=== PATIENT | male | born 1980 | race Caucasian/White ===

== ENCOUNTER 2017-01-09 23:27 | Emergency (ER) | payer MEDICAID, OTHER ==
[2017-01-10] MEDS ORDERED: CLINDAMYCIN HCL 150 MG CAPSULE PO ONE (01:35)
[2017-01-10] MEDS ORDERED: BUPIVACAINE HCL 0.75% INJ/PF (7.5 MG/1 ML) 10 ML SDV INJ ONE (01:35)
[2017-01-10] MEDS ORDERED: POLYMYXIN B SULFATE/TMP OPH SOLN 10 ML OU ONE (01:35)
[2017-01-10] MEDS ORDERED: LIDOCAINE 1% INJ (10 MG/ML) 10 ML MDV INJ ONE (01:36)
--- NOTE | 2017-01-10 01:38 | ER Document Report ---
ED General - General Chief Complaint: Facial Swelling Stated Complaint: FACIAL SWELLING Time Seen by Provider: 01/10/17 01:28 Notes: Patient is a 37-year-old male that comes emergency department for chief complaint of swelling of the right jaw that began earlier today. He states he did feel soreness in his right lower tooth yesterday and today. He also states that he has very irritated eyes with occasional discharge, he was exposed to his daughter who had the same symptoms and she was treated with resolution. He does have a dentist. He took Tylenol and aspirin before arrival. PMH of non- Hodgkin's lymphoma, in remission, not on chemotherapy or radiation. TRAVEL OUTSIDE OF THE [place] IN LAST 30 DAYS: No - Related Data Allergies/Adverse Reactions: No Known Allergies Allergy (Verified 01/09/17 23:57) Past Medical History - General Information source: Patient - Social History Smoking Status: Never Smoker Drug Abuse: None Lives with: Family Family History: Hypertension - Past Medical History Cardiac Medical History: Reports: Hx Hypertension - on meds Denies: Hx Coronary Artery Disease, Hx Heart Attack Pulmonary Medical History: Denies: Hx Asthma, Hx Bronchitis, Hx COPD, Hx Pneumonia, Hx Tuberculosis Neurological Medical History: Denies: Hx Cerebrovascular Accident, Hx Seizures Renal/ Medical History: Denies: Hx Peritoneal Dialysis Musculoskeltal Medical History: Denies Hx Arthritis - Immunizations Hx Diphtheria, Pertussis, Tetanus Vaccination: Yes Review of Systems - Review of Systems Constitutional: No symptoms reported EENT: See HPI Cardiovascular: No symptoms reported Respiratory: No symptoms reported Gastrointestinal: No symptoms reported Genitourinary: No symptoms reported Male Genitourinary: No symptoms reported Musculoskeletal: No symptoms reported Skin: No symptoms reported Hematologic/Lymphatic: No symptoms reported Neurological/Psychological: No symptoms reported Physical Exam - Vital signs Vitals: Temp Pulse Resp BP Pulse Ox 98.3 F 91 16 134/88 H 95 01/09/17 23:54 01/09/17 23:54 01/09/17 23:54 01/09/17 23:54 01/09/17 23:54 Interpretation: Normal - General General appearance: Appears well, Alert In distress: None - Patient appears mildly ill and mildly uncomfortable but does not appear to be in distress - HEENT Head: Normocephalic, Atraumatic, Other - Small amount of swelling to the right lower jaw Eyes: Normal Conjunctiva: Injected, Purulent discharge - Small amount of purulent discharge noted at both medial canthus Extraocular movements intact: Yes Eyelashes: Normal Pupils: PERRL Corrective lenses worn: Yes - Glasses Anterior chamber: Normal. No: Hyphema Ears: Normal External canal: Normal Tympanic membrane: Normal Sinus: Normal Nasal: Normal Mouth/Lips: Normal Mucous membranes: Normal Teeth diagram: 1 - Erythematous gumline with dental decay Pharynx: Normal Neck: Normal - Respiratory Respiratory status: No respiratory distress Chest status: Nontender Breath sounds: Normal Chest palpation: Normal - Cardiovascular Rhythm: Regular Heart sounds: Normal auscultation Murmur: No - Abdominal Inspection: Normal Distension: No distension Bowel sounds: Normal Tenderness: Nontender Organomegaly: No organomegaly - Back Back: Normal, Nontender - Extremities General upper extremity: Normal inspection, Nontender, Normal color, Normal ROM , Normal temperature General lower extremity: Normal inspection, Nontender, Normal color, Normal ROM , Normal temperature, Normal weight bearing. No: Kelsey's sign - Neurological Neuro grossly intact: Yes Cognition: Normal Orientation: AAOx4 García Coma Scale Eye Opening: Spontaneous García Coma Scale Verbal: Oriented [place] Coma Scale Motor: Obeys Commands [place] Coma Scale Total: 15 Speech: Normal Motor strength normal: LUE, RUE, LLE, RLE Sensory: Normal - Psychological Associated symptoms: Normal affect, Normal mood - Skin Skin Temperature: Warm Skin Moisture: Dry Skin Color: Normal Course - Re-evaluation Re-evalutation: Patient with obvious conjunctivitis, he reports he got this from his daughter, no orbital swelling or evidence of orbital cellulitis. Patient with slight facial swelling secondary to a dental infection, questionable abscess. Discussed with patient. Dental block was performed, excellent results, after this was performed the erythematous gumline which was a questionable abscess was examined by sticking a small needle in it and aspirating, no purulent material was able to be aspirated, does not appear to be a drainable abscess. Patient treated with clindamycin, referred to the dentist, discussed return precautions. Patient states understanding and agreement. - Vital Signs Vital signs: Temp Pulse Resp BP Pulse Ox 98.2 F 90 17 143/84 H 96 01/10/17 03:09 01/10/17 03:09 01/10/17 03:01/10/17 03:01/10/17 03:09 Procedures - Additional Procedures Right inferior alveolar nerve dental block Notes: 1 cc of 1% lidocaine and 2 cc of 0.75% bupivacaine injected after aspirating into the ridge at the inferior alveolar nerve block location, excellent results with good anesthesia, there was a small amount of bleeding afterwards but this resolved after a short duration of pressure with 2 x 2's. On recheck patient has no persisting symptoms other than good anesthesia. Discharge - Discharge Clinical Impression: Facial swelling, Dental infection Conjunctivitis Qualifiers: Conjunctivitis type: unspecified Laterality: bilateral Qualified Code(s): H10.9 - Unspecified conjunctivitis Condition: Stable Disposition: HOME, SELF-CARE Additional Instructions: Your examination is consistent with a dental infection causing swelling of the face, also shows conjunctivitis (pinkeye). Take both the antibiotic and the antibiotic drops as directed. Follow-up with a dentist for additional management to prevent this from occurring again. Return to the emergency department for any concerning or worsening symptoms including increased swelling of the face, loss of vision, fever, or any other concerning symptoms. Prescriptions: Clindamycin HCl [Cleocin 150 mg Capsule] 150 mg PO Q6 #56 capsule Polymyxin B Sulfate/Tmp [Polytrim Oph Soln 10 ml] 1 dose OP ASDIR PRN #1 bottle PRN Reason: Forms: Return to Work
[2017-01-10] MEDS ORDERED: LIDOCAINE 1% INJ-PF (10 MG/ML) 30 ML SDV ONE (02:04)
[2017-01-10] MEDS ORDERED: POLYMYXIN B SULFATE/TMP OPH SOLN 10 ML ONE (02:17)
[2017-01-10] MEDS ORDERED: HYDROCODONE/ACETAMINOPHEN 5-325 MG 6 TAB/DSPK PO PRN (02:42)
[2017-01-10 03:11] VITALS: BP 143/84
== END 2017-01-10 03:11 | disposition home or self-care (01) ==
LOC: ER 23:27
PROC: 3E0T3BZ Introduction of Anesthetic Agent into Peripheral Nerves and Plexi, Percutaneous Approach (ICD-10-PCS; principal; 2017-01-09)
DX: K04.7 Periapical abscess without sinus (principal); R22.0 Localized swelling, mass and lump, head; I10 Essential (primary) hypertension
CPT/HCPCS: 99283; 64400; J3490 ×2

== ENCOUNTER → 2017-10-09 | Outpatient (CLI) | payer OTHER ==
--- NOTE | 2017-10-10 11:00 | RADIOLOGY REPORT (SQ) ---
EXAM DESCRIPTION: PET CT SKULL/THIGH COMPLETED DATE/TIME: 10/09/2017 9:46 pm REASON FOR STUDY: NON HODGKIN LYMPHOMA COMPARISON: 05/10/2014. RADIONUCLIDE AND DOSE: 10.0 mCi F18 FDG The route of agent administration: Intravenous FASTING BLOOD SUGAR: 88 mg/dl CONTRAST TYPE AND DOSE: No CT contrast given. TECHNIQUE: Blood glucose level was verified. Above dose of FDG was injected intravenously. 2-D seg mented attenuation correction images were obtained from the base of the skull to the midthighs. Nonc ontrast CT images were obtained for attenuation correction and fusion with emission images. CT image s were performed without oral or intravenous contrast and are not sensitive for parenchymal lesions. A series of overlapping emission PET images were obtained. [facility] by the radiologist. Images stored on PACS. LIMITATIONS: None. FINDINGS: HEAD AND NECK: No areas of abnormal metabolic activity in the soft tissues of the head and neck. CHEST: No areas of abnormal metabolic activity in the chest. ABDOMEN AND PELVIS: No areas of abnormal metabolic activity in the abdomen or pelvis. Expected physi ologic activity is present in the genitourinary system and bowel. PROXIMAL LOWER EXTREMITIES: No areas of abnormal metabolic activity in the soft tissues of the lower extremities. BONES: No abnormal metabolic activity in the visualized skeleton. ADDITIONAL CT FINDINGS: No additional significant findings on the noncontrast CT images. OTHER: Background liver activity mean SUV 2.21. Background blood pool activity mean SUV 1.45. IMPRESSION: NEGATIVE PET-CT SCAN. NO ABNORMAL ACTIVITY DETECTED. NO ADENOPATHY OR SOFT TISSUE MASS ES. NO SIGNIFICANT FINDINGS ON NONCONTRAST CT. TECHNICAL DOCUMENTATION: JOB ID: [id number] [employer]- All Rights Reserved Reading location - IP/workstation name: [email or web address]
== END ==
LOC: RAD 18:56
PROVIDERS: ATTEND Nurse Practitioner Family
DX: Z85.72 Personal history of non-Hodgkin lymphomas (principal)
CPT/HCPCS: 78815; A9552

== ENCOUNTER 2020-02-24 00:46 | Emergency (ER) | payer OTHER ==
[2020-02-24] MEDS ORDERED: KETOROLAC TROMETHAMINE 60 MG/2 ML SDV IM ONE (01:22)
[2020-02-24] MEDS ORDERED: PROMETHAZINE HCL INJ 25 MG/1 ML VIAL IM ONE (01:22)
--- NOTE | 2020-02-24 01:26 | ER Document Report ---
ED Medical Screen (RME) - General Chief Complaint: Flank Pain Stated Complaint: FLANK PAIN Time Seen by Provider: 02/24/20 01:15 Primary Care Provider: NIURKA HER APRN [Primary Care Provider] - Follow up as needed Mode of Arrival: Ambulatory Information source: Patient Notes: 40-year-old male coming in today with sudden onset of right flank pain radiating to the abdomen and groin starting this evening. Her symptoms last week. Some nausea produced. No fevers or chills. No urinary symptoms. Patient reports no previous problems with kidney stones. General exam nontoxic appearing but uncomfortable Abdomen nontender, no CVA tenderness Musculoskeletal no spinal tenderness I have greeted and performed a rapid initial assessment of this patient. A comprehensive ED assessment and evaluation of the patient, analysis of test results and completion of the medical decision making process will be conducted by additional ED providers. TRAVEL OUTSIDE OF THE [place] IN LAST 30 DAYS: No - Related Data Allergies/Adverse Reactions: No Known Allergies Allergy (Verified 01/09/17 23:57) Past Medical History - Past Medical History Cardiac Medical History: Reports: Hx Hypertension - on meds Denies: Hx Coronary Artery Disease, Hx Heart Attack Pulmonary Medical History: Denies: Hx Asthma, Hx Bronchitis, Hx COPD, Hx Pneumonia, Hx Tuberculosis Neurological Medical History: Denies: Hx Cerebrovascular Accident, Hx Seizures Renal/ Medical History: Denies: Hx Peritoneal Dialysis Musculoskeltal Medical History: Denies Hx Arthritis - Immunizations Hx Diphtheria, Pertussis, Tetanus Vaccination: Yes Physical Exam - Vital signs Vitals: Temp Pulse Resp BP Pulse Ox 97.5 F 77 19 174/105 H 100 02/24/20 00:52 02/24/20 00:52 02/24/20 00:52 02/24/20 00:52 02/24/20 00:52 Course - Vital Signs Vital signs: Temp Pulse Resp BP Pulse Ox 97.5 F 77 19 174/105 H 100 02/24/20 00:52 02/24/20 00:52 02/24/20 00:52 02/24/20 00:52 02/24/20 00:52 Doctor's Discharge - Discharge Referrals: NIURKA HER APRN [Primary Care Provider] - Follow up as needed
[2020-02-24] MEDS ORDERED: NORMAL SALINE 1000 ML 1,000 ML IV ONE (01:32)
[2020-02-24] MEDS ORDERED: ONDANSETRON HCL INJ/PF 4 MG/2 ML SDV IV ONE (01:32)
[2020-02-24] MEDS ORDERED: KETOROLAC TROMETHAMINE INJ/PF 30 MG/1 ML SDV IV ONE (01:32)
[2020-02-24 02:09] LABS: ABSOLUTE BASOPHILS # (AUTO) 0.1 10^3/uL (0.0-0.2); ABSOLUTE EOSINOPHILS # (AUTO) 0.3 10^3/uL (0.0-0.6); ABSOLUTE LYMPHOCYTES (AUTO) 1.3 10^3/uL (0.5-4.7); ABSOLUTE MONOCYTES (AUTO) 0.7 10^3/uL (0.1-1.4); ABSOLUTE NEUT (AUTO) 6.3 10^3/uL (1.7-8.2); BASOPHILS % (AUTO) 0.7 % (0-2); EOSINOPHILS % (AUTO) 3.1 % (0-6); HEMATOCRIT 43.7 % (37.9-51.0); HEMOGLOBIN 15.3 g/dL (13.5-17.0); LYMPHOCYTES % (AUTO) 15.4 % (13-45); MEAN CORPUSCULAR HEMOGLOBIN 35.2 pg (27.0-33.4); MEAN CORPUSCULAR HGB CONC 35.1 g/dL (32.0-36.0); MEAN CORPUSCULAR VOLUME 100 fl (80-97); MONOCYTES % (AUTO) 8.4 % (3-13); PLATELET COUNT 227 10^3/uL (150-450); RED BLOOD COUNT 4.36 10^6/uL (4.35-5.55); RED CELL DISTRIBUTION WIDTH 13.6 % (11.5-14.0); SEGMENTED NEUTROPHILS % (AUTO) 72.4 % (42-78); TOTAL CELLS COUNTED % (AUTO) 100 %; WHITE BLOOD COUNT 8.7 10^3/uL (4.0-10.5)
--- NOTE | 2020-02-24 02:15 | ER Document Report ---
ED General - General Chief Complaint: Flank Pain Stated Complaint: FLANK PAIN Time Seen by Provider: 02/24/20 01:15 Primary Care Provider: SAILAJA LOZADA MD [NO LOCAL MD] - Follow up in 3-5 days (for urology follow up for kidney stone ) NIURKA HER APRN [NO LOCAL MD] - Follow up in 3-5 days Mode of Arrival: Ambulatory TRAVEL OUTSIDE OF THE [place] IN LAST 30 DAYS: No - HPI Notes: 40-year-old male to the emergency department with complaints of sudden onset right flank pain that began tonight with associated nausea and vomiting. Patient states that he had a little bit of a cold for the past couple of days. He admits to some nasal congestion and a mild cough. States he felt like he was may be getting a little bit better in the past 2 days but then tonight after going to bed he awoke with the pain. Never had a kidney stone before. Denies a ny fevers or temperature greater than 100.4. Denies any COVID-19 contacts. He is a non-Hodgkin's lymphoma patient he was in remission. 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 He denies any chest pain, shortness of breath, diarrhea. The patient was evaluated during the global COVID 19 pandemic, and that diagnosis was suspected/considered upon their initial presentation. Their evaluation, treatment, and testing was consistent with current guidelines for patients who present with complaints or symptoms that may be related to COVID-19. - Related Data Allergies/Adverse Reactions: No Known Allergies Allergy (Verified 01/09/17 23:57) Home Medications: [facility] Past Medical History - General Information source: Patient - Social History Smoking Status: Current Every Day Smoker Family History: Hypertension - Past Medical History Cardiac Medical History: Reports: Hx Hypertension - on meds Denies: Hx Coronary Artery Disease, Hx Heart Attack Pulmonary Medical History: Denies: Hx Asthma, Hx Bronchitis, Hx COPD, Hx Pneumonia, Hx Tuberculosis Neurological Medical History: Denies: Hx Cerebrovascular Accident, Hx Seizures Renal/ Medical History: Denies: Hx Peritoneal Dialysis Musculoskeletal Medical History: Denies Hx Arthritis - Immunizations Hx Diphtheria, Pertussis, Tetanus Vaccination: Yes Review of Systems - Review of Systems Constitutional: denies: Chills, Fever EENT: Nose congestion Cardiovascular: denies: Chest pain, Dizziness, Lightheaded Respiratory: Cough. denies: Short of breath Gastrointestinal: Abdominal pain, Nausea, Vomiting. denies: Diarrhea Genitourinary: Flank pain. denies: Frequency, Hematuria Musculoskeletal: denies: Back pain Skin: No symptoms reported Hematologic/Lymphatic: No symptoms reported Neurological/Psychological: No symptoms reported -: Yes All other systems reviewed and negative Physical Exam - Vital signs Vitals: Temp Pulse Resp BP Pulse Ox 97.5 F 77 19 174/105 H 100 02/24/20 00:52 02/24/20 00:52 02/24/20 00:52 02/24/20 00:52 02/24/20 00:52 Interpretation: Normal - General General appearance: Appears well, Alert In distress: None - HEENT Head: Normocephalic, Atraumatic Eyes: Normal Pupils: PERRL Ears: Normal External canal: Normal Tympanic membrane: Normal. No: Bulging, Hemotympanum, Injected, Perforation, Purulent effusion Sinus: Normal Nasal: Normal. No: Purulent discharge, Septal hematoma, Swelling Mouth/Lips: Normal Mucous membranes: Normal Pharynx: Normal. No: Peritonsillar abscess, Retropharyngeal abscess, Tonsillar hypertrophy, Uvular edema, Potential airway comprom. Neck: Normal, Supple - Respiratory Respiratory status: No respiratory distress Chest status: Nontender Breath sounds: Normal. No: Rales, Rhonchi, Wheezing Chest palpation: Normal - Cardiovascular Rhythm: Regular Heart sounds: Normal auscultation Murmur: No - Abdominal Inspection: Obese Distension: No distension Bowel sounds: Normal Tenderness: Nontender. No: Tender, McBurney's point, Zepeda's sign, Guarding, R ebound Organomegaly: No organomegaly - Back Back: CVA tenderness - Mild right CVA tenderness. No: Vertebra tenderness - Extremities General upper extremity: Normal inspection, Nontender, Normal color, Normal ROM, Normal temperature General lower extremity: Normal inspection, Nontender, Normal color, Normal ROM, Normal temperature, Normal weight bearing - Neurological Neuro grossly intact: Yes Cognition: Normal Orientation: AAOx4 García Coma Scale Eye Opening: Spontaneous García Coma Scale Verbal: Oriented [place] Coma Scale Motor: Obeys Commands [place] Coma Scale Total: 15 Speech: Normal Cranial nerves: Normal Cerebellar coordination: Normal Motor strength normal: LUE, RUE, LLE, RLE 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 It is 1.5 cm in the renal pelvis with some mild hydronephrosis. The patient got Toradol here and is completely pain-free. He is actually snoring and sleeping in the room. He had a little bit of nausea vomiting when he first arrived and that also resolved. He feels well enough to go home. I did call the radiologist and talk to Dr. Jay to confirm the size. He indeed confirms that it is 1.5 cm. I discussed the patient with Dr. Sosa, he went and saw the patient. We agree that if he has good pain control will send him home with close outpatient follow-up with urology. I have given the patient my hours for the next 2 nights to return if he has intractable pain, intractable nausea vomiting, fevers. Patient also endorsed a history of upper respiratory symptoms to include mild cough and nasal congestion. He has had no fever greater than 100.4. He has not had any known contacts to anyone with Covid. He was swabbed today. Thus, while we wait for the Covid swab to return I have encouraged the patient to quarantine without joanna l. Patient was provided with discharge information including: As a person under investigation for COVID-19, [facility], division of public health advises you to adhere to the following guidance until your test results are reported to you. If your test result is positive, you will receive additional information from your provider and your local health department at that time. Remain at home until you are cleared by the healthcare provider public health authorities. Keep a log of visitors to your home and notify any visitors to your home of your isolation status. If you plan to move to a new address or leave the country, notify the local health department and your County. Call your doctor or seek care if you have an urgent medical need. Before seeking medical care, call ahead to get instructions from the provider before arriving at the medical office, clinic, or hospital. Notify them that you are being tested for the virus that causes COVID-19 so that arrangements can be made, as necessary, to prevent transmission to others in the healthcare setting. Next, notify the local health department and your County. If a medical emergency arises and you need to call 911, informed the first responders that you are being tested for the virus that causes COVID-19. Next, notified the [facility] department and your County. - Vital Signs Vital signs: Temp Pulse Resp BP Pulse Ox 97.5 F 77 19 174/105 H 100 02/24/20 00:52 02/24/20 00:52 02/24/20 00:52 02/24/20 00:52 02/24/20 00:52 - Laboratory Result Diagrams: 02/24/20 01:50 02/24/20 01:50 Laboratory results interpreted by me: 02/24/20 02/24/20 01:50 02:25 MCV 100 H MCH 35.2 H Urine Protein >=500 H Urine Blood LARGE H Urine Urobilinogen 2.0 H Leukocyte Esterase Rfl MODERATE H - Diagnostic Test Radiology reviewed: Image reviewed, Reports reviewed Discharge - Discharge Clinical Impression: Kidney stone on right side, Right flank pain URI (upper respiratory infection) Qualifiers: URI type: unspecified URI Qualified Code(s): J06.9 - Acute upper respiratory infection, unspecified Hydronephrosis Qualifiers: Hydronephrosis type: unspecified Qualified Code(s): N13.30 - Unspecified hydronephrosis Condition: Stable Disposition: HOME, SELF-CARE Instructions: Kidney Stone ([facility]), Upper Respiratory Illness ([facility]) Additional Instructions: Take medicines as prescribed. Return if any worsening symptoms. Return immediately if intractable pain, fevers, intractable nausea and vomiting. Follow-up with a urologist. You had a 1.5 cm right-sided kidney stone on CT today. In regards to your upper respiratory symptoms, please quarantine until you have the results of your Covid test. He will need to wear a mask and monitor your symptoms closely. As a person under investigation for COVID-19, [place] department of Health and Human Services, division of public health advises you to adhere to the following guidance until your test results are reported to you. If your test result is positive, you will receive additional information from your provider and your local health department at that time. Remain at home until you are cleared by the healthcare provider public health authorities. Keep a log of visitors to your home and notify any visitors to your home of your isolation status. If you plan to move to a new address or leave the country, notify the local health department and your County. Call your doctor or seek care if you have an urgent medical need. Before seeking medical care, call ahead to get instructions from the provider before arriving at the medical office, clinic, or hospital. Notify them that you are being tested for the virus that causes COVID-19 so that arrangements can be made, as necessary, to prevent transmission to others in the healthcare setting. Next, notify the local health department and your County. If a medical emergency arises and you need to call 911, informed the first responders that you are being tested for the virus that causes COVID-19. Next, notified the local health department and your County. Prescriptions: Ketorolac Tromethamine [Toradol 10 mg Tablet] 10 mg PO Q8HP PRN #10 tablet PRN Reason: Ciprofloxacin HCl [Cipro 500 mg Tablet] 500 mg PO BID #10 tablet Hydrocodone/Acetaminophen [[place] 5-325 mg Tablet] 1 - 2 tab PO Q6H #12 tablet Promethazine HCl [Phenergan 25 mg Tablet] 1 - 2 tab PO Q6H PRN #15 tablet PRN Reason: Referrals: NIURKA HER APRN [NO LOCAL MD] - Follow up in 3-5 days SAILAJA LOZADA MD [NO LOCAL MD] - Follow up in 3-5 days (for urology follow up for kidney stone )
--- NOTE | 2020-02-24 02:22 | RADIOLOGY REPORT (SQ) ---
CHEST X-RAY 1 VIEW on 02/24/2020 at 1:54 AM CLINICAL INDICATION: Cough COMPARISON: 09/24/2013 FINDINGS: The prior right-sided Port-A-Cath has been removed. There is elevation of the left hemidiaphragm. There is minimal linear atelectasis or scarring in the left lung base. The lungs are otherwise clear. Cardiac, hilar and mediastinal contours are within normal limits. Pulmonary vascularity is within normal limits. IMPRESSION: No acute disease.
[2020-02-24 02:30] LABS: ALBUMIN 4.6 g/dL (3.5-5.0); ALKALINE PHOSPHATASE 87 U/L (38-126); ANION GAP 13 (5-19); ASPARTATE AMINO TRANSFERASE 25 U/L (17-59); BILIRUBIN,DIRECT 0.2 mg/dL (0.0-0.4); BILIRUBIN,TOTAL 0.5 mg/dL (0.2-1.3); BLOOD UREA NITROGEN 8 mg/dL (7-20); CALCIUM 9.6 mg/dL (8.4-10.2); CARBON DIOXIDE 23 mmol/L (22-30); CHLORIDE 102 mmol/L (98-107); GLUCOSE 106 mg/dL (75-110); TOTAL PROTEIN 7.6 g/dL (6.3-8.2)
[2020-02-24 02:44] LABS: A TYPE INFLUENZA AG NEGATIVE (NEGATIVE); B INFLUENZA AG NEGATIVE (NEGATIVE)
[2020-02-24 02:52] LABS: APPEARANCE,URINE CLOUDY; BILIRUBIN,URINE NEGATIVE (NEGATIVE); GLUCOSE, URINE NEGATIVE (NEGATIVE); KETONES,URINE NEGATIVE (NEGATIVE); PROTEIN,URINE >=500 mg/dL (NEGATIVE); URINE SPECIFIC GRAVITY 1.024
[2020-02-24 02:53] LABS: COLOR,URINE YELLOW
--- NOTE | 2020-02-24 03:32 | RADIOLOGY REPORT (SQ) ---
EXAM DESCRIPTION: CT ABDOMEN PELVIS WITHOUT IV CONTRAST COMPLETED DATE/TME: 02/24/2020 01:21 INDICATION: Abdominal pain, acute. TECHNIQUE: Contiguous axial CT images of the abdomen and pelvis. Intravenous contrast: Absent. Oral contrast: Absent. Protocol: Renal stone. DLP 945 mGy-cm. This exam was performed according to our departmental dose-optimization program, which includes automated exposure control, adjustment of the mA and/or kV according to patient size and/or use of iterative reconstruction technique. COMPARISON: 08/08/2013. FINDINGS: Lower chest: Partially imaged. Lung bases: Unremarkable. Cardiac apex: Unremarkable. Solid abdominal viscera: Limited by lack of intravenous contrast. Liver: Unremarkable. Gallbladder: Unremarkable. Pancreas: Unremarkable. Spleen: Unremarkable. Adrenal glands: Unremarkable. Right kidney: 1.5 cm stone within the renal pelvis causing mild hydronephrosis Left kidney: No urolithiasis or hydronephrosis. Urinary bladder: Unremarkable. Abdominal aorta: Mild atherosclerotic calcifications. Peritoneal: Free fluid: None. Free air: None. Other: No pathologic sized lymph nodes in the upper abdomen. Bowel: Stomach: Unremarkable. Small bowel: Unremarkable. Appendix: Unremarkable. Colon: Unremarkable. Rectum: Unremarkable. Prostate: Unremarkable. Bones: Multilevel spondylosis, worst at L3-L4. IMPRESSION: 1.5 cm stone within the right renal pelvis causing mild hydronephrosis.
[2020-02-24] MEDS ORDERED: OXYCODONE-ACETAMINOPHEN 5-325 MG TABLET PO ONE (04:36)
[2020-02-24 04:57] VITALS: BP 140/98
== END 2020-02-24 04:56 | disposition home or self-care (01) ==
LOC: ER 00:46
DX: N13.2 Hydronephrosis with renal and ureteral calculous obstruction (principal); J06.9 Acute upper respiratory infection, unspecified; R11.2 Nausea with vomiting, unspecified; R09.81 Nasal congestion; R05 Cough; F17.200 Nicotine dependence, unspecified, uncomplicated; I10 Essential (primary) hypertension; Z79.899 Other long term (current) drug therapy; Z85.72 Personal history of non-Hodgkin lymphomas; Z94.81 Bone marrow transplant status; Z20.828 Contact with and (suspected) exposure to other viral communicable diseases
CPT/HCPCS: 99285; 96361; 96374; 96375; 36415; 87086; 85025; 87635; 80053; 81001; 87804; 71045; 74176; J1885; J2405; J7030; C9803